=== PATIENT | female | born 1960 | race African-American/Black ===

== ENCOUNTER 2021-06-16 22:42 | Emergency (ER) | payer BC ==
[2021-06-16] MEDS ORDERED: HYDROCODONE/APAP 7.5/325 MG TAB ONE (23:24)
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
[2021-06-17 01:42] VITALS: TEMP 98
[2021-06-17 01:43] VITALS: BP 138/73; O2SAT 98
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
== END 2021-06-17 01:36 | disposition home or self-care (01) ==
LOC: ER 22:42
DX: E11.9 Type 2 diabetes mellitus without complications (principal); I10 Essential (primary) hypertension; M25.552 Pain in left hip; M79.622 Pain in left upper arm; V89.2XXA Person injured in unspecified motor-vehicle accident, traffic, initial encounter
CPT/HCPCS: 72170; 99284

== ENCOUNTER 2021-07-10 13:14 | Emergency (ER) | payer BC, OTHER ==
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
[2021-07-10 15:13] VITALS: BP 143/77; TEMP 98; O2SAT 100
== END 2021-07-10 15:08 | disposition home or self-care (01) ==
LOC: ER 13:14
DX: M54.12 Radiculopathy, cervical region (principal); E11.9 Type 2 diabetes mellitus without complications; I10 Essential (primary) hypertension
CPT/HCPCS: 71250; 72125; 99283

== ENCOUNTER → 2023-08-15 | Emergency (ER) | payer BC ==
[~2023-08-15] MED LIST: HYDROCODONE/APAP 10/325 TAB ONE; IBUPROFEN 200 MG TAB PO ONE
--- OUTSIDE RECORDS SUMMARY | 2023-08-15 11:37 | XMS REPORT | Continuity of Care Document ---
Author Name Unknown Address [address] [place] [address] [employer] Address [address] [place] [address] Care Team Providers Care Monorail Hooker Name Role Phone Paulina Attending Clinician Unavailab le Paulina Admitting Clinician Unavailab le Encounters Start Date/Time End Date/Time Encounter Type Admission Type Attending Clinicians Care Facility Care Department Encounter ID Source 2021-12-13 01:27:00 2021-12-13 01:27:00 Outpatient Nydia Gong [facility] A[facility] [id number] [facility]
--- NOTE | 2023-08-15 13:50 | EDPHYS ---
Physician Documentation [facility] Name: Tammi Whitney Age: 62 yrs Sex: Female : 1960 Arrival Date: 08/15/2023 Time: 11:34 Bed 11 Private MD: OFELIA Physician Damaso Wesley HPI: 08/15 13:37 This 62 yrs old Black Female presents to ER via Ambulatory with complaints of Knee shahla Injury. 13:37 The patient presents with decreased range of motion, pain, that is acute. The shahla complaints affect the right knee. Context: The problem was sustained at home, resulted from twisting of the extremity, while lifting or pulling, the patient can partially bear weight, the patient is able to ambulate, with moderate difficulty, Problem is a result from a previous injury: No. Onset: The symptoms/episode began/occurred 1 week(s) ago. Modifying factors: The symptoms are alleviated by elevating leg, remaining still, the symptoms are aggravated by movement, weight bearing, bending knee. Associated signs and symptoms: Pertinent positives:. Treatment prior to arrival includes: over the counter medications, prescription medications. Severity of symptoms: At their worst the symptoms were moderate, in the emergency department the symptoms are unchanged. The patient has not experienced similar symptoms in the past. Historical: - Allergies: 11:45 No Known Allergies; ap3 - PMHx: 11:45 Diabetes - NIDDM; Hypertension; ap3 - Immunization history:: Client reports receiving the 2nd dose of the Covid vaccine. - Social history:: Smoking status: Patient denies any tobacco usage or history of. - Family history:: not pertinent. ROS: 13:37 Constitutional: Negative for fever, chills, and weight loss, Eyes: Negative for injury, shahla pain, redness, and discharge, ENT: Negative for injury, pain, and discharge, Neck: Negative for injury, pain, and swelling, Cardiovascular: Negative for chest pain, palpitations, and edema, Respiratory: Negative for shortness of breath, cough, wheezing, and pleuritic chest pain, Abdomen/GI: Negative for abdominal pain, nausea, vomiting, diarrhea, and constipation, Back: Negative for injury and pain, : Negative for injury, bleeding, discharge, and swelling, Skin: Negative for injury, rash, and discoloration, Neuro: Negative for headache, weakness, numbness, tingling, and seizure, Psych: Negative for depression, anxiety, suicide ideation, homicidal ideation, and hallucinations, Allergy/Immunology: Negative for hives, rash, and allergies, Endocrine: Negative for neck swelling, polydipsia, polyuria, polyphagia, and marked weight changes, 13:37 MS/extremity: Positive for decreased range of motion, pain, swelling, tenderness, of the medial aspect of right knee and right knee, Exam: 13:37 Constitutional: This is a well developed, well nourished patient who is awake, alert, shahla and in no acute distress. Head/Face: Normocephalic, atraumatic. Eyes: Pupils equal round and reactive to light, extra-ocular motions intact. Lids and lashes normal. Conjunctiva and sclera are non-icteric and not injected. Cornea within normal limits. Periorbital areas with no swelling, redness, or edema. ENT: Nares patent. No nasal discharge, no septal abnormalities noted. Tympanic membranes are normal and external auditory canals are clear. Oropharynx with no redness, swelling, or masses, exudates, or evidence of obstruction, uvula midline. Mucous membranes moist. Neck: Trachea midline, no thyromegaly or masses palpated, and no cervical lymphadenopathy. Supple, full range of motion without nuchal rigidity, or vertebral point tenderness. No Meningismus. Chest/axilla: Normal chest wall appearance and motion. Nontender with no deformity. No lesions are appreciated. Cardiovascular: Regular rate and rhythm with a normal S1 and S2. No gallops, murmurs, or rubs. Normal PMI, no JVD. No pulse deficits. Respiratory: Lungs have equal breath sounds bilaterally, clear to auscultation and percussion. No rales, rhonchi or wheezes noted. No increased work of breathing, no retractions or nasal flaring. Abdomen/GI: Soft, non-tender, with normal bowel sounds. No distension or tympany. No guarding or rebound. No evidence of tenderness throughout. Back: No spinal tenderness. No costovertebral tenderness. Full range of motion. Female : Normal external genitalia. Skin: Warm, dry with normal turgor. Normal color with no rashes, no lesions, and no evidence of cellulitis. Neuro: Awake and alert, GCS 15, oriented to person, place, time, and situation. Cranial nerves II-XII grossly intact. Motor strength 5/5 in all extremities. Sensory grossly intact. Cerebellar exam normal. Normal gait. Psych: Awake, alert, with orientation to person, place and time. Behavior, mood, and affect are within normal limits. 13:37 Musculoskeletal/extremity: ROM: intact in all extremities, full active range of motion, full passive range of motion, in the right leg, limited active range of motion due to pain, limited passive range of motion due to pain, Circulation is intact in all extremities. Sensation intact. Compartment Syndrome exam of affected extremity: is normal. DVT Exam: negative Homans' sign noted on exam, no appreciated bluish discoloration, no erythema, no increased warmth, pain, swelling, tenderness, Vital Signs: 11:43 Pulse 75; Resp 17; Temp 98.5; Pulse Ox 99% on R/A; Weight 106.59 kg; Height 5 ft. 2 in. ap3 ; Pain 9/10; 11:46 BP 136 / 101; ap3 11:43 Body Mass Index 42.98 (106.59 kg, 157.48 cm) ap3 11:43 Pain Scale: Adult ap3 MDM: 11:39 Patient medically screened. [facility] 13:41 Differential diagnosis: closed fracture, contusion, tendonitis. Data reviewed: vital [facility] signs, nurses notes, radiologic studies, plain films. Consideration of Admission/Observation Escalation of care including admission/observation considered. I considered the following discharge prescriptions or medication management in the emergency department Medications were administered in the Emergency Department. See MAR. Independent interpretation of the following test(s) in the Emergency Department X-Ray: My interpretation is right knee. Test considered but Not performed: Labs: no labs. Historians other than the Patient: Family Member: sister. Care significantly affected by the following chronic conditions: Diabetes, Obesity. Counseling: I had a detailed discussion with the patient and/or guardian regarding radiology results. 08/15 11:49 Order name: Knee Right 3 View XRAY [facility] 08/15 11:49 Order name: Ice pack; Complete Time: 11:57 [facility] 08/15 13:37 Order name: Knee Immobilizer; Complete Time: 14:02 shahla Administered Medications: 11:57 Drug: Ibuprofen PO 600 mg PO once Route: PO; ap3 14:02 Follow up: Response: No adverse reaction ap3 14:02 Drug: Felicity PO 10 mg-325 mg 1 tabs PO once Route: PO; ap3 Disposition Summary: 08/15/23 13:49 Discharge Ordered Notes: Location: Home [facility] Problem: new shahla Symptoms: have improved shahla Condition: Stable shahla Diagnosis - Effusion, right knee shahla - Unspecified internal derangement of right knee shahla Followup: shahla - With: Private Physician - When: 2 - 3 days - Reason: Recheck today's complaints, Continuance of care, Re-evaluation by your physician Followup: shahla - With: Kobi Saucedo MD - When: 2 - 3 days - Reason: Recheck today's complaints, Re-evaluation by your physician Discharge Instructions: - Discharge Summary Sheet shahla - Knee Effusion shahla - Acute Knee Pain, Adult shahla - Knee Effusion, [id number] shahla - Acute Knee Pain, Adult, [id number] shahla - Medial Collateral Knee Ligament Sprain [facility] Forms: - Medication Reconciliation Form [facility] - Thank You Letter [facility] - Antibiotic Education shahla - Prescription Opioid Use shahla - Patient Portal Instructions [facility] - Leadership Thank You Letter [facility] Prescriptions: - acetaminophen-codeine 300-30 mg Oral tablet - take 2 tablet ORAL route every 6 hours as needed for pain; 20 tablet; Refills: shahla 0, Product Selection Permitted - diclofenac sodium 50 mg Oral tablet, delayed release (enteric coated) - take 1 tablet ORAL route 2 times per day; 20 tablet; Refills: 0, Product [facility] Selection Permitted - Medrol (Alexander) 4 mg Oral Tablets, Dose Pack - take 1 tablet ORAL route as directed - follow package instructions; 1 packet; shahla Refills: 0, Product Selection Permitted Signatures: Dispatcher [employer] Damaso Grant MD MD cha Prokisch, Amanda, RN RN ap3
--- NOTE | 2023-08-15 13:50 | ER ---
Nurse's Notes [facility] Name: Tammi Whitney Age: 62 yrs Sex: Female : 1960 Arrival Date: 08/15/2023 Time: 11:34 Bed 11 Private MD: Diagnosis: Effusion, right knee;Unspecified internal derangement of right knee Presentation: 08/15 11:43 Chief complaint: Patient states: she might have injured her knee last week when ap3 assisting with her mothers move. patient reports she has been using Motrin and pain patches to help with the pain, with no avail. patient reports her pain is currently a 9/10 on the pain scale. Coronavirus screen: At this time, the client does not indicate any symptoms associated with coronavirus-19. Ebola Screen: No symptoms or risks identified at this time. Initial Sepsis Screen: Does the patient meet any 2 criteria? No. Patient's initial sepsis screen is negative. Does the patient have a suspected source of infection? No. Patient's initial sepsis screen is negative. Risk Assessment: Do you want to hurt yourself or someone else? Patient reports no desire to harm self or others. Onset of symptoms was August 09, 2023. 11:43 Method Of Arrival: Ambulatory ap3 11:43 Acuity: LINA 4 ap3 Triage Assessment: 11:45 General: Appears in no apparent distress. Behavior is calm, cooperative, appropriate ap3 for age. Pain: Complains of pain in right knee Pain currently is 9 out of 10 on a pain scale. Neuro: Level of Consciousness is awake, alert, obeys commands, Oriented to person, place, time, situation, Appropriate for age. Cardiovascular: Patient's skin is warm and dry. Respiratory: Airway is patent Respiratory effort is even, unlabored, Respiratory pattern is regular, symmetrical. Musculoskeletal: Reports pain in right knee. Injury Description: unknown. Historical: - Allergies: 11:45 No Known Allergies; ap3 - PMHx: 11:45 Diabetes - NIDDM; Hypertension; ap3 - Immunization history:: Client reports receiving the 2nd dose of the Covid vaccine. - Social history:: Smoking status: Patient denies any tobacco usage or history of. - Family history:: not pertinent. Screenin:46 [facility] ED Fall Risk Assessment (Adult) History of falling in the last 3 months, ap3 including since admission No falls in past 3 months (0 pts). Abuse screen: Denies threats or abuse. Nutritional screening: No deficits noted. Tuberculosis screening: No symptoms or risk factors identified. Vital Signs: 11:43 Pulse 75; Resp 17; Temp 98.5; Pulse Ox 99% on R/A; Weight 106.59 kg; Height 5 ft. 2 in. ap3 ; Pain 9/10; 11:46 BP 136 / 101; ap3 11:43 Body Mass Index 42.98 (106.59 kg, 157.48 cm) ap3 11:43 Pain Scale: Adult ap3 ED Course: 11:37 Patient arrived in ED. mg5 11:39 Damaso Wesley MD is Attending Physician. [facility] 11:45 Triage completed. ap3 11:46 Arm band placed on left wrist. ap3 12:29 Patient has correct armband on for positive identification. Call light in reach. Side ap3 rails up X 1. Adult w/ patient. Pulse ox on. NIBP on. 12:29 No provider procedures requiring assistance completed. ap3 12:36 Knee Right 3 View XRAY In Process Unspecified. EDCT 13:48 Kobi Saucedo MD is Referral Physician. [facility] 14:07 Provided Education on: medications prior to administration. ap3 14:07 Patient did not have IV access during this emergency room visit. ap3 Administered Medications: 11:57 Drug: Ibuprofen PO 600 mg PO once Route: PO; ap3 14:02 Follow up: Response: No adverse reaction ap3 14:02 Drug: [place] PO 10 mg-325 mg 1 tabs PO once Route: PO; ap3 Medication: 14:07 VIS not applicable for this client. ap3 Outcome: 13:49 Discharge ordered by . [facility] 14:07 Discharged to home ambulatory, with family, ap3 14:07 Condition: good 14:07 Discharge instructions given to patient, Instructed on discharge instructions, follow up and referral plans. medication usage, Demonstrated understanding of instructions, follow-up care, medications, Prescriptions given X 3, 14:08 Patient left the ED. ap3 Signatures: Dispatcher [employer] EDCT Damaso Wesley MD MD cha Prokisch, Amanda, RN RN ap3 [facility] mg5
--- NOTE | 2023-08-15 13:52 | RAD REPORT ---
EXAM DESCRIPTION: RAD - Knee Right 3 View - 08/15/2023 12:34 pm CLINICAL HISTORY: PAIN COMPARISON: No comparisons TECHNIQUE: Right knee, 3 views. FINDINGS: No fracture, dislocation or periosteal reaction. Well corticated osseous fragment along th e anterior upper tibia, may relate to sequelae of [place]-Schlatter's disease. Enthesopathy along the quadriceps tendon attachment and heterotopic bone deposition anterior to the patella and along the pa tellar tendon attachment as well. Mild joint effusion seen. No joint space narrowing. No soft tissue abnormality. IMPRESSION: No acute osseous abnormality. Mild joint effusion. Other chronic findings as above.
[2023-08-16 21:57] VITALS: BP 136/101; TEMP 98.5; O2SAT 99
== END ==
LOC: ER 11:34
DX: M25.461 Effusion, right knee (principal); M23.91 Unspecified internal derangement of right knee

== ENCOUNTER 2024-10-30 13:15 | Emergency (ER) | payer BC ==
--- OUTSIDE RECORDS SUMMARY | 2024-10-30 13:17 | XMS REPORT | Continuity of Care Document ---
Author Name Unknown Address [address] [place] [address] [place] [id number] Care Team Providers Care Quarry Supervisor Dimension Stone Name Role Phone Paulina Attending Clinician Unavailab le Paulina Admitting Clinician Unavailab le Encounters Start Date/Time End Date/Time Encounter Type Admission Type Attending Clinicians Care Facility Care Department Encounter ID Source 2021-12-13 01:27:00 2021-12-13 01:27:00 Outpatient Nydia Gong AO AO [id number] [facility]
--- NOTE | 2024-10-30 14:43 | RAD REPORT ---
Extremity Venous [employer] CLINICAL INDICATION: Female, 63 years old.PAIN RIGHT TECHNIQUE: Complete duplex sonography of the lower extremity veins was performed of the affected limb . The examination included compression for vein patency, color Doppler imaging and flow augmentation in response to distal compression of the distal external iliac, common femoral, femoral, popliteal, peroneal, tibial and great saphenous veins. [id number]. COMPARISON: No prior exams FINDINGS: Duplex sonography imaging demonstrates all deep veins examined to be fully compressible with spontane ous, phasic and augmented flow in the affected limb. IMPRESSION: No evidence of deep venous thrombosis in the right lower extremity.
--- NOTE | 2024-10-30 14:51 | RAD REPORT ---
EXAMINATION: Tib Fib Right VIEWS: As above CLINICAL INDICATION: Female, 63 years old. PAIN COMPARISON: No prior exam. IMPRESSION: No acute fracture. No malalignment. No radiopaque foreign body. Mild tibiotalar degenerative changes.
--- NOTE | 2024-10-30 14:54 | EDPHYS ---
Physician Documentation [facility] – [place], [place] Name: Tammi Whitney Age: 63 yrs Sex: Female : 1960 Arrival Date: 10/30/2024 Time: 13:15 Bed IW1 Private MD: ED Physician Lucy Hopper HPI: 10/30 13:52 This 63 yrs old Black Female presents to ER via Ambulatory with complaints of Leg Pain sb4 - Right. 13:52 Patient reports a sharp shooting pain in her right lateral calf. she states that it sb4 began about a week ago but has been worse over the past few days. injury to the area. Denies any warmth, redness, swelling. She denies any trauma to the area.. Historical: - Allergies: 13:45 No Known Allergies; ss - PMHx: 13:45 Diabetes - NIDDM; Hypertension; ss - Immunization history:: Client reports receiving the 2nd dose of the Covid vaccine. - Infectious Disease History:: Denies. - Social history:: Smoking status: Patient denies any tobacco usage or history of. ROS: 13:52 Constitutional: Negative for fever, chills, and weight loss, sb4 13:52 MS/extremity: Positive for pain, of the lateral aspect of right calf, 13:52 All other systems are negative, Exam: 13:54 Constitutional: This is a well developed, well nourished patient who is awake, alert, sb4 and in no acute distress. Head/Face: Normocephalic, atraumatic. Eyes: Extra-ocular motions intact. Periorbital areas with no swelling, redness, or edema. ENT: Mucous membranes moist. Respiratory: No increased work of breathing, no retractions or nasal flaring. Skin: Warm, dry with normal turgor. Normal color with no rashes, no lesions, and no evidence of cellulitis. MS/ Extremity: Pulses equal, no cyanosis. Neurovascular intact. Full, normal range of motion. 13:54 Musculoskeletal/extremity: DVT Exam: no swelling, no tenderness, negative Homans' sign noted on exam, no appreciated bluish discoloration, no erythema, no increased warmth, pain, Vital Signs: 13:45 BP 115 / 87; Pulse 66; Resp 15; Temp 98.5(O); Pulse Ox 98% ; Weight 105.69 kg; Height 5 ss ft. 2 in. ; Pain 710; 13:45 Body Mass Index 42.62 (105.69 kg, 157.48 cm) ss 13:45 Pain Scale: Adult ss MDM: 13:19 Medical Screening Exam initiated sb4 14:53 Data reviewed: vital signs, nurses notes, lab test result(s), radiologic studies, and sb4 as a result, I will discharge patient. Counseling: I had a detailed discussion with the patient and/or guardian regarding the historical points, exam findings, and any diagnostic results supporting the discharge/admit diagnosis, radiology results, the need for outpatient follow up, for definitive care, to return to the emergency department if symptoms worsen or persist or if there are any questions or concerns that arise at home. 15:25 Care significantly affected by the following chronic conditions: Diabetes, Hypertension.sb4 10/30 14:02 Order name: Glucose, Ancillary Testing; Complete Time: 14:02 EDMS 10/30 13:47 Order name: Extremity Venous Uni Ltd US; Complete Time: 14:44 sb4 10/30 13:47 Order name: Tib Fib Right XRAY; Complete Time: 14:52 sb4 10/30 13:47 Order name: Accucheck; Complete Time: 13:50 sb4 Administered Medications: 15:41 Drug: Gabapentin PO 300 mg PO once Route: PO; ss 15:41 Follow up: Response: Medication Administered at Departure ss Disposition Summary: 10/30/24 14:54 Discharge Ordered Notes: Location: Home sb4 Problem: an ongoing problem sb4 Symptoms: are unchanged sb4 Condition: Stable sb4 Diagnosis - Pain in right lower leg sb4 Followup: sb4 - With: Jin Carcamo MD - When: 1 week - Reason: Recheck today's complaints, Re-evaluation by your physician Discharge Instructions: - Discharge Summary Sheet sb4 - Musculoskeletal Pain sb4 - Pain Without a Known Cause sb4 Forms: - Patient Portal Instructions sb4 - Leadership Thank You Letter sb4 Prescriptions: - Anaprox DS 550 mg Oral Tablet - take 1 tablet ORAL route every 12 hours As needed; 20 tablet; Refills: 0, sb4 Product Selection Permitted - Cyclobenzaprine 5 mg Oral Tablet - take 1 tablet ORAL route 3 times per day As needed; 15 tablet; Refills: 0, sb4 Product Selection Permitted Signatures: Dispatcher [facility] Coni Swanson, RN RN Beatriz Miranda, EILEEN velasquez
--- NOTE | 2024-10-30 14:54 | ER ---
Nurse's Notes [facility] Name: Tammi Whitney Age: 63 yrs Sex: Female : 1960 Arrival Date: 10/30/2024 Time: 13:15 Bed IW1 Private MD: Diagnosis: Pain in right lower leg Presentation: 10/30 13:45 Chief complaint: Patient states: R leg pain that has been ongoing x 1 week. Worse the ss last few days. Ebola Screen: Patient denies exposure to infectious person. Patient denies travel to an Ebola-affected area in the 21 days before illness onset. Initial Sepsis Screen: Does the patient meet any 2 criteria? No. Patient's initial sepsis screen is negative. Does the patient have a suspected source of infection? No. Patient's initial sepsis screen is negative. Risk Assessment: Do you want to hurt yourself or someone else? Patient reports no desire to harm self or others. Onset of symptoms was October 23, 2024. 13:45 Method Of Arrival: Ambulatory ss 13:45 Acuity: LINA 3 ss Historical: - Allergies: 13:45 No Known Allergies; ss - PMHx: 13:45 Diabetes - NIDDM; Hypertension; ss - Immunization history:: Client reports receiving the 2nd dose of the Covid vaccine. - Infectious Disease History:: Denies. - Social history:: Smoking status: Patient denies any tobacco usage or history of. Screenin:41 Abuse screen: Denies threats or abuse. Denies injuries from another. ss Assessment: 15:41 Reassessment: Patient appears in no apparent distress at this time. Patient and/or ss family updated on plan of care and expected duration. Pain level reassessed. Patient is alert, oriented x 3, equal unlabored respirations, skin warm/dry/pink. Vital Signs: 13:45 BP 115 / 87; Pulse 66; Resp 15; Temp 98.5(O); Pulse Ox 98% ; Weight 105.69 kg; Height 5 ss ft. 2 in. ; Pain 7/10; 13:45 Body Mass Index 42.62 (105.69 kg, 157.48 cm) ss 13:45 Pain Scale: Adult ss ED Course: 13:17 Patient arrived in ED. im 13:18 Beatriz Hernandez PA-C is PHCP. sb4 13:18 Lucy Hopper MD is Attending Physician. sb4 13:45 Arm band placed on right wrist. ss 13:47 Triage completed. ss 14:34 Extremity Venous Uni Ltd US In Process Unspecified. EDMS 14:47 Tib Fib Right XRAY In Process Unspecified. EDMS 14:54 Jin Carcamo MD is Referral Physician. sb4 15:41 No provider procedures requiring assistance completed. Patient did not have IV access ss during this emergency room visit. Administered Medications: 15:41 Drug: Gabapentin PO 300 mg PO once Route: PO; ss 15:41 Follow up: Response: Medication Administered at Departure ss Outcome: 14:54 Discharge ordered by MD. sb4 15:41 Discharged to home ambulatory, ss 15:41 Condition: good 15:41 Discharge instructions given to patient, family, Instructed on discharge instructions, follow up and referral plans. medication usage, Demonstrated understanding of instructions, follow-up care, medications, Prescriptions given X 2, 15:41 Patient left the ED. ss Signatures: Dispatcher [employer] Coni Swanson RN RN Beatriz Hernandez, PA-C PA-C sb4 Irasema Lawson
[2024-10-30] MEDS ORDERED: GABAPENTIN 300 MG CAP ONE (15:36)
[2024-10-30 17:07] VITALS: BP 115/87; TEMP 98.5; O2SAT 98
== END 2024-10-30 15:41 | disposition home or self-care (01) ==
LOC: ER 13:15
DX: M79.661 Pain in right lower leg (principal); E11.9 Type 2 diabetes mellitus without complications; I10 Essential (primary) hypertension
CPT/HCPCS: 82947; 93971; 99283